=== PATIENT | male | born 1970 ===

== ENCOUNTER 2024-06-19 09:20 | Outpatient (CLI) | payer OTHER, SELFPAY ==
[2024-07-15 17:52] VITALS: BMI 40.6
--- NOTE | 2024-07-15 17:52 | WPDSLEEPSTUD ---
Sleep Study Date of Study: 06/19/24 Ordering Provider: Jeff Cordero, AMUSEMENT RIDE OPERATOR Interpreting Physician: Mikayla Saldana, Sleep Study Type: Split Polysomnogram Height: 1.83 m Weight: 136.078 kg Body Mass Index: 40.6 Neck Circumference (inches): 20 [place]: 6 Reason for Sleep Study Unrefreshing sleep Sleep History The patient is a 53-year-old male with previously diagnosed sleep apnea that had a sleep study ordered by his ENT office for evaluation of unrefreshing sleep. The patient subsequently awakens from sleep short of breath. He occasionally awakens at night with heartburn, belching or cough. He frequently snores and is frequently loud enough that others complain. He frequently has trouble sleeping when he has a cold. He frequently wakes up gasping for air throughout the night. He frequently has breathing problems at night observed by himself or others. He occasionally sweats excessively at night. He frequently has heart palpitations or irregular heartbeats during the night. He rarely falls asleep during the day and rarely falls asleep while driving. He denies sleep paralysis and cataplexy. He rarely has trouble at school or work due to sleepiness. He occasionally experiences vivid dreamlike scenes upon awakening or falling asleep. He denies feeling afraid of going to sleep. He denies having nightmares. He occasionally remembers his dreams. He occasionally has thoughts racing through his mind. He frequently feels sad or depressed. He occasionally has anxiety. He rarely has muscular tension. He denies noticing parts of his body jerk. He denies kicking during the night. He occasionally has crawling and aching feelings in his legs and occasionally has leg pain during the night. He occasionally grinds his teeth during sleep and occasionally awakens with morning jaw pain. He is occasionally bothered by pain during the day but rarely awakened by pain during the night. He rarely wakes up feeling stiff in the morning. He occasionally wakes up with sore or achy muscles. He occasionally wakes up with pain in the neck, spine or other joints. He goes to bed at 10:00 p.m. on both weekdays and week ends. He takes him 30 minutes to fall asleep. He wakes up 6-8 times throughout the night to adjust his mask or use the restroom. It takes him 30 minutes to fall back asleep. He wakes up at 6:00 a.m. on weekdays and at 7:00 a.m. on the weekends. He typically gets 5-6 hours of sleep per night. He will stay in bed for 30 minutes after waking up in the morning. He currently lives with his girlfriend and 4 children. He denies consuming any caffeinated beverages within 2 hours of bedtime. He denies engaging in physical exercise before bedtime. He will watch television before falling asleep. He denies taking naps in afternoon and evening. He consumes 88 oz of caffeinated tea per day. He consumes 4-6 alcoholic beverages per weekend. He denies tobacco and recreational drug use. Sleep Procedure A full night polysomnogram using the [email or web address] multi-channel system recorded the standard physiologic parameters including EEG, EOG, submentalis EMG, anterior tibialis EMG, EKG, body position, nasal and oral airflow using nasal pressure sensor and thermistor.? Respiratory parameters of chest and abdominal movements were recorded with Respiratory Inductance Plethysmography belts. Oxygen saturation was recorded by pulse oximetry. Video monitoring was also performed. Sleep stages, periodic limb movements, and EEG arousals were scored in 30 second epochs according to the criteria of the AASM Scoring Manual. The Apnea-Hypopnea Index was calculated using CMS guidelines for definition of hypopnea with 4% O2 desaturations while scoring respiratory events. Sleep Architecture During the diagnostic portion of the study, the total recording time was 241.0 minutes. The total sleep time was 151.0 minutes. Sleep latency was 48.5 minutes.? REM sleep was not ach
== END 2024-06-20 06:57 | disposition home or self-care (01) ==
LOC: ANHCSM 09:21
PROVIDERS: Visit Provider Nurse Practitioner Family
DX: G47.33 Obstructive sleep apnea (adult) (pediatric) (principal)
CPT/HCPCS: 95811